=== PATIENT | female | born 1995 | race Caucasian/White ===

== ENCOUNTER 2017-11-15 15:54 | Inpatient (IN) | payer OTHER ==
[2017-11-15 17:00] LABS: ABS Basophils 0.1 10^3/ul (0-0.2); ABS Eosinophils 0.1 10^3/ul (0-0.6); ABS Lymphocytes 4.1 10^3/ul (1.0-4.8); ABS Monocytes 0.6 10^3/ul (0-0.8); ABS Neutrophils 4.2 10^3/ul (1.5-7.7); ABS Nucleated RBC 0 10^3/ul; Eosinophil % 1.7 % (0-6); Hematocrit 39 % (35-47); Hemoglobin 12.9 g/dl (12.0-16.0); Lymphocyte % 44.9 % (25-47); Mean Corpuscular HGB Conc 33 g/dl (31-36); Mean Corpuscular Hemoglobin 25 pg (27-31); Mean Corpuscular Volume 77 fL (80-97); Mean Platelet Volume 7.7 um3 (7.4-10.4); Nucleated Red Blood Cells % 0.1; Platelet Count 300 10^3/ul (150-450); Red Blood Count 5.07 10^6/ul (4.0-5.4); Red Cell Distribution Width 14 % (10.5-15)
[2017-11-15 17:28] LABS: EGFR Non-African American 100.6 (>60)
[2017-11-15 17:38] LABS: Urine Appearance Cloudy; Urine Blood 3+ (Negative); Urine Color Yellow; Urine Ketones Negative (Negative); Urine Protein Negative (Negative); Urine Urobilinogen Negative (Negative)
[2017-11-15] MEDS ORDERED: Al Hydrox/Mg Hydrox/Simet LIQ* 30 ML UDC PO PRN (22:08)
[2017-11-15] MEDS ORDERED: Albuterol HFA INHALER* 8 gm MDI INH PRN (22:12)
[2017-11-15] MEDS ORDERED: diPHENhydraMINE PO* 25 MG PO PRN (22:12)
[2017-11-15] MEDS ORDERED: EPINEPHRINE 1 MG/ML 1 ML VIAL IM PRN (22:13)
[2017-11-15] MEDS: Acetaminophen TAB* 325 MG PO PRN (22:22)
[2017-11-16] MEDS ORDERED: Influenza VAC *QUAD* 2017-18* 0.5 ML SYRINGE IM ONE (09:00)
[2017-11-16] MEDS: Montelukast Sodium TAB* 10 MG PO SCH (09:25)
[2017-11-16] MEDS: Sertraline* 100 MG TAB PO SCH (09:25)
[2017-11-16] MEDS: Cetirizine* 10 MG TAB PO SCH (09:25)
[2017-11-16] MEDS: Vitamin THERAPEUTIC TAB PO SCH (09:25)
[2017-11-16] MEDS: Acetaminophen TAB* 325 MG PO PRN (14:03)
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
[2017-11-16] MEDS: cloNIDine TAB* 0.1 MG PO SCH (21:01)
[2017-11-17] MEDS: Montelukast Sodium TAB* 10 MG PO SCH (07:59)
[2017-11-17] MEDS: Sertraline* 100 MG TAB PO SCH (07:59)
[2017-11-17] MEDS: cloNIDine TAB* 0.1 MG PO SCH (08:00)
[2017-11-17] MEDS: Vitamin THERAPEUTIC TAB PO SCH (08:00)
[2017-11-17] MEDS: Cetirizine* 10 MG TAB PO SCH (08:00)
[2017-11-17] MEDS ORDERED: EPINEPHRINE 1 MG/ML 1 ML VIAL IM PRN (12:00)
[2017-11-17] MEDS ORDERED: cloNIDine TAB* 0.1 MG PO PRN (15:08)
--- NOTE | 2017-11-17 15:17 | PN ---
Subjective - Subjective Date of Service: 11/17/17 Service Type: 65443 Hosp care 25 min moderate complexity Subjective: Patient reports mildly elevated mood and denies nightmares. She states she is more "sleepy" during than day but is unsure if this is related to new medication (clonidine) or change in environment/routine. She reports fleeting panic and describes racing heart and diaphoresis. We discuss use of clonidine during the day on an as-needed basis for panic, as well as consistent bedtime dose for nightmares. She reports her mother is en route from [place] for a planned visit. She agrees to meet with her mother and team tomorrow morning. Patient inquires about a letter to recommend an Emotional Support Animal. Ton Container Shipper explains that as a temporary provider, I am not comfortable with doing so. She is encouraged to discuss with outpatient providers. Objective - Appearance Appearance: Well Developed/Nourished Dysmorphic Features: Yes Hygiene: Normal Grooming: Well Kept - Behavior Psychomotor Activities: Normal Exhibits Abnormal Movement: No - Attitude and Relatedness Attitude and Relatedness: Cooperative Eye Contact: Good - Speech Quality: Unpressured Latencies: Normal Quantity: Appropriate - Mood Patient's Decription of Mood: "Good" - Affect Observed Affect: Good Affect Consistent with: Euthymia - Thought Process Patient's Thought Process: Coherent, Goal Directed Thought Content: No Passive Wish, No Suicidal Planning, No Homicidal Ideation, No Paranoid Ideation - Sensorium Experiencing Hallucinations: No, Sensorium is Clear Type of Hallucinations: Visual: No, Auditory: No, Command: No - Level of Consciousness Level of Consciousness: Alert Orientation: Yes Intact, Yes Orientated to Time, Yes Orientated to Place, Yes Orientated to Person - Impulse Control Impulse Control: Intact - Insight and Judgement Insight and Judgement: Good - Group Participation Particating in Group Activities: Yes - Medication Management Medication Management Adherence: Yes Assessment - Assessment Merits Inpatient Hospitalization: For Immediate Safety, For Stabilization, Consolidate Improvements, For Discharge Planning Inpatient DSM-V Dx: F43.10 Clinical Impression: 22yo white female with PTSD who presented to ED in context of suicidal ideation with a plan to crash her car. She is agreeable to voluntary inpatient treatment for safety and stabilization. Plan - Plan Treatment Plan: Name: MARY ZARATE Birthdate: 1995 [id number] continue acute intensive psychiatric treatment. continue sertraline 100mg daily and clonidine 0.1mg qhs, change daytime dose of clonidine 0.1mg to prn anxiety. decrease to q30min observation and allow staff pass/computer privileges. discharge meeting with mother planned for tomorrow morning. Continued Medication Management: Different Medication Medications: Current Medications Acetaminophen (Tylenol Tab*) 650 mg PO Q4H PRN PRN Reason: PAIN or TEMP > 101 F Last Admin: 11/16/17 14:03 Dose: 650 mg Al Hydrox/Mg Hydrox/Simethicone (Maalox Plus*) 30 ml PO Q4H PRN PRN Reason: INDIGESTION Albuterol (Ventolin Hfa Inhaler*) 1 puff INH Q6H PRN PRN Reason: ASTHMA Cetirizine HCl (Zyrtec*) 10 mg PO DAILY [facility] Last Admin: 11/17/17 08:00 Dose: 10 mg Clonidine HCl (Catapres Tab*) 0.1 mg PO DAILY PRN PRN Reason: ANXIETY Clonidine HCl (Catapres Tab*) 0.1 mg PO BEDTIME JOSE Diphenhydramine HCl (Benadryl Po*) 25 mg PO Q6H PRN PRN Reason: ALLERGIES Last Admin: 11/15/17 22:21 Dose: 25 mg Epinephrine HCl (Adrenalin 1 Mg/Ml) 0.1 mg IM DAILY PRN PRN Reason: ALLERGIC RXN Montelukast Sodium (Singulair Tab*) 10 mg PO DAILY [facility] Last Admin: 11/17/17 07:59 Dose: 10 mg Multivitamins (Theragran Tab*) 1 tab PO DAILY [facility] Last Admin: 11/17/17 08:00 Dose: 1 tab Sertraline HCl (Zoloft*) 100 mg PO DAILY [facility] Last Admin: 11/17/17 07:59 Dose: 100 mg - Discharge Plan Discharge Plan: Outpatient Follow Up Outpatient Program: [facility] at [facility]
--- NOTE | 2017-11-17 16:56 | PN ---
MHU: Group Therapy Note - Service Type Service Type: 81814 Group Psychotherapy - Medication Education Group: Patient was attentive and participatory in group, and remained in good behavioral control. Patient expressed positive insights regarding relevant treatment interventions. Patient stated understanding of material discussed and had appropriate questions.
[2017-11-17] MEDS ORDERED: cloNIDine TAB* 0.1 MG PO SCH (21:00)
[2017-11-18 07:31] VITALS: BP 108/58
[2017-11-18] MEDS ORDERED: Cetirizine* 10 MG TAB PO SCH (09:00)
[2017-11-18] MEDS: Montelukast Sodium TAB* 10 MG PO SCH (09:11)
[2017-11-18] MEDS: Sertraline* 100 MG TAB PO SCH (09:11)
[2017-11-18] MEDS: Vitamin THERAPEUTIC TAB PO SCH (09:11)
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
--- NOTE | 2017-11-22 08:45 | ED ---
Jose Marcos Jennifer scribed for Orestes Freitas MD on 11/15/17 at 1717 . Psychiatric Complaint - HPI Summary HPI Summary: The patient is a 22 year old female who presents with suicidal ideation for a few weeks that worsened today. The patient explains she has a plan to crash her car. She denies auditory and visual hallucinations, as well as alcohol use. The patient is accompanied by her partner today. - History Of Current Complaint Chief Complaint: EDMentalHealth Time Seen by Provider: 11/15/17 16:12 Hx Obtained From: Patient Onset/Duration: Gradual Onset, Lasting Weeks - few weeks, Still Present, Worse Since - today Timing: Constant Severity Initially: Moderate Severity Currently: Mild Character: Depressed Aggravating Factor(s): Nothing Alleviating Factor(s): Nothing Related History: Positive For: Prior Psychiatric Issues Has Suicidal: Reports: Thoughts, With A Plan Has Homicidal: Denies: Thoughts, With A Plan - Allergies/Home Medications Allergies/Adverse Reactions: Allergies Allergy/AdvReac Type Severity Reaction Status Date / Time latex Allergy Swelling Verified 11/15/17 15:57 Home Medications: Home Medications Albuterol Sulfate [Proventil Hfa] 6.7 gm IH Q6H PRN 11/15/17 [History Confirmed 11/15/17] EPINEPHrine SYR* [EPINEPHphrine SYR*] 0.1 mg IM ONCE PRN 11/15/17 [History Confirmed 11/15/17] Fexofenadine (NF) [Xochitl 180 (NF)] 180 mg PO DAILY 11/15/17 [History Confirmed 11/15/17] Montelukast Sodium TAB* [Singulair TAB*] 10 mg PO DAILY 11/15/17 [History Confirmed 11/15/17] Sertraline* [Zoloft*] 100 mg PO DAILY 11/15/17 [History Confirmed 11/15/17] diPHENhydraMINE PO* [Benadryl PO 25 MG TAB*] 25 mg PO Q6H PRN 11/15/17 [History Confirmed 11/15/17] PMH/Surg Hx/FS Hx/Imm Hx Endocrine/Hematology History: Denies: Hx Diabetes Cardiovascular History: Denies: Hx Hypertension Infectious Disease History: No Infectious Disease History: Denies: Traveled Outside the [place] in Last 30 Days - Family History Known Family History: Negative: Cardiac Disease - Social History Alcohol Use: Occasionally Hx Substance Use: No Substance Use Type: Reports: None Hx Tobacco Use: No Smoking Status (MU): Never Smoked Tobacco Review of Systems Negative: Fever, Chills Negative: Erythema Negative: Sore Throat Negative: Chest Pain Negative: Shortness Of Breath, Cough Negative: Abdominal Pain, Vomiting, Nausea Negative: dysuria, hematuria Negative: Myalgia, Edema Negative: Rash Neurological: Negative - dizziness Positive: Depressed, Other - SI All Other Systems Reviewed And Are Negative: Yes Physical Exam - Summary Physical Exam Summary: Constitutional: Well-developed, Well-nourished, Alert. (-) Distressed Skin: Warm, Dry HENT: Normocephalic; Atraumatic Eyes: Conjunctiva normal Neck: Musculoskeletal ROM normal neck. (-) JVD, (-) Stridor, (-) Tracheal deviation Cardio: Rhythm regular, rate normal, Heart sounds normal; Intact distal pulses; The pedal pulses are 2+ and symmetric. Radial pulses are 2+ and symmetric. (-) Murmur Pulmonary/Chest wall: Effort normal. (-) Respiratory distress, (-) Wheezes, (-) Rales Abd: Soft, (-) Tenderness, (-) Distension, (-) Guarding, (-) Rebound Musculoskeletal: (-) Edema Lymph: (-) Cervical adenopathy Neuro: Alert, Oriented x3 Psych: Mood and affect Normal Triage Information Reviewed: Yes Vital Signs On Initial Exam: Initial Vitals Temp Pulse Resp BP Pulse Ox 99.1 F 87 14 118/82 97 11/15/17 15:57 11/15/17 15:57 11/15/17 15:57 11/15/17 15:57 11/15/17 15:57 Vital Signs Reviewed: Yes Diagnostics - Vital Signs Vital Signs Temp Pulse Resp BP Pulse Ox 11/15/17 15:57 99.1 F 87 14 118/82 97 - Laboratory Lab Results: Lab Results 11/15/17 Range/Units 16:48 WBC 9.0 (3.5-10.8) 10^3/ul RBC 5.07 (4.0-5.4) 10^6/ul Hgb 12.9 (12.0-16.0) g/dl Hct 39 (35-47) % MCV 77 L (80-97) fL MCH 25 L (27-31) pg MCHC 33 (31-36) g/dl RDW 14 (10.5-15) % Plt Count 300 (150-450) 10^3/ul MPV 7.7 (7.4-10.4) um3 Neut % (Auto) 46.4 (38-83) % Lymph % (Auto) 44.9 (25-47) % Stark % (Auto) 6.3 (0-7) % Eos % (Auto) 1.7 (0-6) % Baso % (Auto) 0.7 (0-2) % Absolute Neuts (auto) 4.2 (1.5-7.7) 10^3/ul Absolute Lymphs (auto) 4.1 (1.0-4.8) 10^3/ul Absolute Monos (auto) 0.6 (0-0.8) 10^3/ul Absolute Eos (auto) 0.1 (0-0.6) 10^3/ul Absolute Basos (auto) 0.1 (0-0.2) 10^3/ul Absolute Nucleated RBC 0 10^3/ul Nucleated RBC % 0.1 Result Diagrams: 11/15/17 16:48 11/15/17 16:48 Lab Statement: Any lab studies that have been ordered have been reviewed, and results considered in the medical decision making process. Course/Dx - Course Course Of Treatment: The patient is a 22 year old female who presents with suicidal ideation for a few weeks that worsened today. The patient is diagnosed with suicidal ideation. The patient was transferred to Flex unit. - Differential Dx/Clinical Impression Provider Diagnosis: Suicidal ideation Discharge - Sign-Out/Discharge Documenting (check all that apply): Discharge/Admit/Transfer - Discharge Plan Condition: Good Disposition: PSYCHIATRIC FACILITY-[facility] The documentation as recorded by the Jose sharp Jennifer accurately reflects the service I personally performed and the decisions made by , Orestes Freitas MD.
== END 2017-11-18 12:48 | disposition home or self-care (01) | DRG 755 ==
LOC: ED 15:54 → BSU 20:17
PROVIDERS: ADMIT Psychiatry & Neurology Psychiatry; ATTEND Psychiatry & Neurology Psychiatry
DX: F43.10 Post-traumatic stress disorder, unspecified (principal); R45.851 Suicidal ideations; Z79.899 Other long term (current) drug therapy; Z91.040 Latex allergy status; Z91.018 Allergy to other foods; Z91.048 Other nonmedicinal substance allergy status; Z81.1 Family history of alcohol abuse and dependence; Z81.8 Family history of other mental and behavioral disorders
CPT/HCPCS: 36415; 80053; 80061; 80307; 80320; 80329; 81003; 81015; 83036; 84443; 84702; 85025; 87086; 90853; 99222; 99232; 99238; 99285; A9270-GY; G0480